=== PATIENT | male | born 1990 | race Hispanic/Latino ===

== ENCOUNTER 2018-08-01 14:21 | Emergency (ER) | payer BC ==
[2018-08-01 14:34] VITALS: BP 130/84; PULSE 84; RESP 16; TEMP 98; O2SAT 100
[2018-08-01] MEDS ORDERED: Lidocaine Hydrochloride 5 ML INJ ONE (14:38)
[2018-08-01] MEDS ORDERED: Bacitracin 500 Units/gm Oint Foilpak UD ONE (14:38)
[2018-08-01] MEDS ORDERED: Lidocaine 1% Inj (20ml) INFIL STA (14:44)
--- NOTE | 2018-08-01 15:02 | C.PDOC ---
History Of Present Illness 27 year old male presents to the ED for evaluation of a laceration to the left hand with a fresh scalpel blade prior to arrival. Patient reports he was using the blade to make models at home. Denies fever, foreign body sensation, numbness, tingling, and any other associated symptoms. Time Seen by Provider: 08/01/18 14:42 Chief Complaint (Nursing): Abnormal Skin Integrity History Per: Patient History/Exam Limitations: no limitations Onset/Duration Of Symptoms: Other (prior to arrival.) Current Symptoms Are (Timing): Still Present Past Medical History Reviewed: Historical Data, Nursing Documentation, Vital Signs Vital Signs: Last Vital Signs Temp 98 F 08/01/18 14:31 Pulse 84 08/01/18 14:31 Resp 16 08/01/18 14:31 BP 130/84 08/01/18 14:31 Pulse Ox 100 08/01/18 14:31 Family History: States: Unknown Family Hx - Social History Hx Alcohol Use: No Hx Substance Use: No - Immunization History Hx Tetanus Toxoid Vaccination: Yes Hx Influenza Vaccination: No Hx Pneumococcal Vaccination: No Review Of Systems Except As Marked, All Systems Reviewed And Found Negative. Constitutional: Negative for: Fever, Other (foreign body sensation.) Skin: Positive for: Other (left hand laceration.) Neurological: Negative for: Weakness, Numbness, Incoordination Physical Exam - Physical Exam Appears: Well, Non-toxic, No Acute Distress Skin: Warm, Dry, Other (2cm laceration over the thenar webspace. ) Head: Atraumatic, Normacephalic Eye(s): bilateral: PERRL Oral Mucosa: Moist Neck: Normal ROM, Supple Extremity: Normal ROM (of left upper extremity digits. ), No Deformity, No Swelling Neurological/Psych: Oriented x3, Normal Speech, Normal Motor, Normal Sensation, Normal Reflexes ED Course And Treatment O2 Sat by Pulse Oximetry: 100 (RA) Pulse Ox Interpretation: Normal Procedure: Wound Repair - Procedure Procedure: Wound Repair: 2cm laceration over left thenar webspace. - Consent Obtained Consent obtained: Verbal - Performed by Performed by: Attending Physician - Indications Indication(s):: Laceration - Location Location:: Left, Hand Depth:: Epidermis - Anesthetic Technique Local/Regional Anesthetic:: Lidocaine 1% - Complexity Complexity:: Simple (one layer) - Wound repair method Sutures:: # (x3) - Muscle repiar layer closed with Muscle repair layer closed with:: Tetanus up to date - Patient tolerated procedure Patient Tolerated Procedure:: Well (cleaned with saline and betadine.) Medical Decision Making Medical Decision Makin cm lac L thenar space no muscle/tendon involvement 3 sutures 3-0 Nylon No prophylactic abx required. Td utd Progress/Update: Laceration was cleaned with saline and betadine, closed with x3 sutures. Bacitracin applied. Patient informed of at home wound care. Advised to follow up with PMD with 1-2 days. Advised to visit the ED if symptoms worsen. Disposition Doctor Will See Patient In The: Office Counseled Patient/Family Regarding: Studies Performed, Diagnosis - Disposition Referrals: [facility] [Outside] [employer] [facility] [Outside] [facility] [Outside] Disposition: HOME/ ROUTINE Disposition Time: 15:03 Condition: GOOD Additional Instructions: keep clean and dry, smear of Bacitracin daily, band aid suture removal 7 days (08/08) Instructions: Laceration Repair With Stitches (DC) Forms: [employer] (Belgian) - Clinical Impression Clinical Impression: Laceration of hand - Scribe Statement The provider has reviewed the documentation as recorded by the Scribe (Vivian Elise) Provider Attestation: All medical record entries made by the Scribe were at my direction and personally dictated by me. I have reviewed the chart and agree that the record accurately reflects my personal performance of the history, physical exam, medical decision making, and the department course for this patient. I have also personally directed, reviewed, and agree with the discharge instructions and disposition.
[2018-08-01] MEDS ORDERED: Bacitracin Ointment 30 GM TUBE TOP STA (15:09)
== END 2018-08-01 15:50 | disposition home or self-care (01) ==
LOC: C.ER 14:21
DX: S61.412A Laceration without foreign body of left hand, initial encounter (principal); W45.8XXA Other foreign body or object entering through skin, initial encounter

== ENCOUNTER 2018-08-09 18:32 | Emergency (ER) | payer BC ==
[2018-08-09 18:47] VITALS: BP 122/79; PULSE 74; TEMP 98.4; O2SAT 98
--- NOTE | 2018-08-09 19:21 | C.PDOC ---
History Of Present Illness 27 year old male presents to the ED for suture removal. Patient had sutures placed to his left hand after he injured the area with a scalpel blade. Patient states the wound has been well-healing and denies fever, chills, discharge or pain to the area. Time Seen by Provider: 08/09/18 18:53 Chief Complaint (Nursing): Suture/Staple Removal History Per: Patient History/Exam Limitations: no limitations Onset/Duration Of Symptoms: Days Ago Current Symptoms Are (Timing): Still Present Quality Of Symptoms: denies: Painful, Itching, Swollen, Draining Additional History Per: Patient Past Medical History Reviewed: Historical Data, Nursing Documentation, Vital Signs Vital Signs: Last Vital Signs Temp 98.4 F 08/09/18 18:45 Pulse 74 08/09/18 18:45 Resp 16 08/09/18 18:45 BP 122/79 08/09/18 18:45 Pulse Ox 98 08/09/18 18:45 - Medical History PMH: No Chronic Diseases Surgical History: No Surg Hx Family History: States: Unknown Family Hx - Social History Hx Alcohol Use: No Hx Substance Use: No - Immunization History Hx Tetanus Toxoid Vaccination: Yes Hx Influenza Vaccination: No Hx Pneumococcal Vaccination: No Review Of Systems Constitutional: Negative for: Fever, Chills Skin: Positive for: Other (suture removal ) Physical Exam - Physical Exam Appears: Non-toxic, No Acute Distress Skin: Normal Color, Warm, Dry, Other (well-healing wound to thenar webspace of left hand. no signs of infection ) Extremity: Normal ROM Neurological/Psych: Normal Speech, Normal Cognition ED Course And Treatment O2 Sat by Pulse Oximetry: 98 (on RA ) Pulse Ox Interpretation: Normal Medical Decision Making Medical Decision Making: Three sutures successfully removed. Patient tolerated well and is stable for discharge. Disposition - Disposition Referrals: Krissy Guo MD [Medical Doctor] - Disposition: HOME/ ROUTINE Disposition Time: 19:20 Condition: GOOD Additional Instructions: Return if worsened Instructions: Stitches Removal Forms: [employer] (Lao) - Clinical Impression Clinical Impression: Removal of suture - PA / CERTIFIED BENCH JEWELER TECHNICIAN / Resident Statement MD/DO has reviewed & agrees with the documentation as recorded. - Scribe Statement The provider has reviewed the documentation as recorded by the Scribe (Nargis Bautista) All medical record entries made by the Scribe were at my direction and personally dictated by me. I have reviewed the chart and agree that the record accurately reflects my personal performance of the history, physical exam, medical decision making, and the department course for this patient. I have also personally directed, reviewed, and agree with the discharge instructions and disposition.
[2018-08-09 19:25] VITALS: RESP 20
== END 2018-08-09 19:24 | disposition home or self-care (01) ==
LOC: C.ER 18:32
DX: Z48.02 Encounter for removal of sutures (principal)